=== PATIENT | male | born 1960 | race Two or more races ===

== ENCOUNTER 2023-10-20 09:03 | Emergency (ER) | payer OTHER ==
[~2023-10-20] VITALS: Ht 185.4 cm; Wt 75.3 kg
[2023-10-20] MEDS ORDERED: TAMS0.4C (09:13)
[2023-10-20] MEDS ORDERED: DULOXETINE HCL40 MG (09:13)
[2023-10-20] MEDS ORDERED: LIPITOR80 MG (09:13)
[2023-10-20] MEDS ORDERED: VASOTEC20 M1 (09:13)
[2023-10-20] MEDS ORDERED: INDERAL XL80 MG (09:14)
[2023-10-20 10:19] LABS: HEMATOCRIT 43.4 % (39.0-48.0); HEMOGLOBIN 14.9 g/dL (13-16.00); MEAN CELL VOLUME 85.5 fL (80.0-100.00); MEAN CORPUSCULAR HEMOGLOBIN 29.5 pg (27.00-32.0); MEAN CORPUSCULAR HGB CONC 34.4 g/dl (32.0-36.0); PLATELET COUNT 191 K/uL (150-450); RED BLOOD COUNT 5.07 M/uL (4.00-6.00); RED CELL DISTRIBUTION WIDTH 13.4 % (11.5-14.5)
[2023-10-20 11:05] LABS: CALCIUM 9.7 mg/dL (8.5-10.1); CREATININE SERUM 0.78 mg/dL (0.70-1.30); GFR 100.85; POTASSIUM 5.03 mEq/L (3.5-5.1)
[2023-10-20] MEDS ORDERED: INSULIN REGULAR, HUMAN 1,000 UNIT/10 ML UNITS IV NR (13:00)
[2023-10-20 14:17] LABS: PH,URINE 6.5 (5.0-8.0); URINE APPEARANCE Clear; URINE BILIRRUBIN Negative (NEGATIVE); URINE BLOOD Negative; URINE COLOR Yellow; URINE KETONE Negative (NEGATIVE); URINE LEUKOCYTE Negative; URINE NITRATE Negative; URINE PROTEIN Negative (NEGATIVE)
[2023-10-20 14:22] LABS: URINE RBC 2.2 uL (0.0-20.8); URINE WBC 4.7 uL (0.0-23.2)
[2023-10-20 14:48] LABS: URINE BACTERIA 2.5 uL (0.0-1933); URINE EPITHELIAL CELLS 0.4 uL (0.0-38.8); URINE GLUCOSE >=1000 MG/DL (NEGATIVE)
== END 2023-10-20 15:46 | disposition home or self-care (01) ==
LOC: ER 09:04
PROVIDERS: Emergency Medicine
DX: R73.9 Hyperglycemia, unspecified (principal); I10 Essential (primary) hypertension; E78.00 Pure hypercholesterolemia, unspecified; Z86.73 Personal history of transient ischemic attack (TIA), and cerebral infarction without residual deficits; Z88.6 Allergy status to analgesic agent; Z88.0 Allergy status to penicillin
CPT/HCPCS: 36415; 93005; 96365; 99283; J1815

== ENCOUNTER 2024-03-21 10:55 | Emergency (ER) | payer OTHER ==
[~2024-03-21] VITALS: Ht 185.4 cm; Wt 78.0 kg
[~2024-03-21 10:55] MED LIST: DULOXETINE HCL40 MG; INDERAL XL80 MG; LIPITOR80 MG; TAMS0.4C; VASOTEC20 M1
[2024-03-21] MEDS ORDERED: ONDANSETRON HCL 2 MG/ML VIAL IV ONE (12:00)
[2024-03-21] MEDS ORDERED: FAMOtidine 10 MG/ML (4ML VIAL) IV ONE (12:00)
[2024-03-21] MEDS ORDERED: BUTALB/ACETAMINOPHEN/CAFFEINE 1 TAB TABLET PO ONE ×2 (12:00→12:27)
[2024-03-21] MEDS ORDERED: ONDANSETRON HCL 2 MG/ML VIAL ONE (12:26)
[2024-03-21] MEDS ORDERED: FAMOTIDINE/PF 20 MG/2 ML VIAL ONE (12:27)
[2024-03-21 13:00] LABS: HEMATOCRIT 45.6 % (39.0-48.0); HEMOGLOBIN 15.3 g/dL (13-16.00); MEAN CELL VOLUME 88.5 fL (80.0-100.00); MEAN CORPUSCULAR HEMOGLOBIN 29.7 pg (27.00-32.0); MEAN CORPUSCULAR HGB CONC 33.6 g/dl (32.0-36.0); PLATELET COUNT 195 K/uL (150-450); RED BLOOD COUNT 5.15 M/uL (4.00-6.00); RED CELL DISTRIBUTION WIDTH 13.4 % (11.5-14.5)
[2024-03-21] MEDS ORDERED: LevETIRAcetam 500 MG/5 ML VIAL IV SCH (14:37)
[2024-03-21] MEDS ORDERED: LevETIRAcetam 500 MG/5 ML VIAL IV ONE (14:41)
[2024-03-21 14:42] LABS: ALBUMIN 3.6 gm/dL (3.4-5.0); BILIRUBIN TOTAL 0.75 mg/dL (0.3-1.2); CALCIUM 9.1 mg/dL (8.5-10.1); CREATININE SERUM 0.73 mg/dL (0.70-1.30); GFR 108.87; GLOBULINA 3.7 G/DL (2.4-3.5); POTASSIUM 4.38 mEq/L (3.5-5.1); TOTAL PROTEIN 7.3 gm/dL (6.4-8.2)
[2024-03-21 15:17] LABS: INR 1.15; PARTIAL THROMBOPLASTIN TIME 26.9 SECONDS (22.0-34.0); PROTHROMBIN TIME 12.4 SECONDS (9.0-11.5)
[2024-03-21] MEDS ORDERED: LABETALOL HCL 200 MG/40 ML VIAL IV ONE (15:45)
[2024-03-21] MEDS ORDERED: LABETALOL HCL 100 MG/20 ML ML ONE (16:05)
[2024-03-21] MEDS ORDERED: NIMODIPINE 30 MG CAPSULE PO SCH (17:00)
== END 2024-03-21 20:11 | disposition home or self-care (01) ==
LOC: ER 10:57
PROVIDERS: General Practice
DX: R51.9 Headache, unspecified (principal); R11.0 Nausea; Z20.822 Contact with and (suspected) exposure to COVID-19; I10 Essential (primary) hypertension; E11.9 Type 2 diabetes mellitus without complications; Z88.0 Allergy status to penicillin; Z88.6 Allergy status to analgesic agent
CPT/HCPCS: 36415; 70450; 70552; 71045; 93005; 93041; 96365; 99284; J2405; J3490 ×3; Q9965; 70545

== ENCOUNTER 2024-04-01 10:11 | Emergency (ER) | payer OTHER ==
[~2024-04-01] VITALS: Ht 185.4 cm; Wt 78.0 kg
[2024-04-01 11:51] LABS: HEMATOCRIT 46.6 % (39.0-48.0); HEMOGLOBIN 15.8 g/dL (13-16.00); MEAN CELL VOLUME 88.4 fL (80.0-100.00); MEAN CORPUSCULAR HEMOGLOBIN 29.9 pg (27.00-32.0); MEAN CORPUSCULAR HGB CONC 33.8 g/dl (32.0-36.0); PLATELET COUNT 184 K/uL (150-450); RED BLOOD COUNT 5.27 M/uL (4.00-6.00); RED CELL DISTRIBUTION WIDTH 13.3 % (11.5-14.5)
[2024-04-01 12:00] LABS: INR 1.11; PARTIAL THROMBOPLASTIN TIME 26.1 SECONDS (22.0-34.0)
[2024-04-01 12:29] LABS: ABG PH 7.421 (7.35-7.45); ABG PO2 92.4 mmHg (80-100); ABG pCO2 40.9 mmHg (35-45); SaO2 97.3 %
[2024-04-01 12:30] LABS: BASE EXCESS 1.4 mmol/l; Tco2 27.2 mmol/l; allen test SATISFACTORY; o2 21 %; puncture site RADIAL LEFT
[2024-04-01 12:49] LABS: ALBUMIN 3.8 gm/dL (3.4-5.0); BILIRUBIN TOTAL 0.87 mg/dL (0.3-1.2); CALCIUM 9.5 mg/dL (8.5-10.1); CREATININE SERUM 0.77 mg/dL (0.70-1.30); GFR 102.37; GLOBULINA 3.4 G/DL (2.4-3.5); POTASSIUM 4.79 mEq/L (3.5-5.1); TOTAL PROTEIN 7.2 gm/dL (6.4-8.2)
== END 2024-04-01 16:26 | disposition home or self-care (01) ==
LOC: ER 10:13
PROVIDERS: General Practice
DX: R07.9 Chest pain, unspecified (principal); Z88.0 Allergy status to penicillin; Z88.6 Allergy status to analgesic agent